=== PATIENT | female | born 1950 | race Caucasian/White ===

== ENCOUNTER → 2017-05-18 | Outpatient (CLI) | payer OTHER ==
[2015-03-24 19:18] VITALS: BP 132/86
--- NOTE | 2017-05-18 15:54 | RAD ---
HISTORY: Right knee pain Study: Four views right knee Comparison: 03/24/2015 Findings: Chronic osteoarthritic changes are noted. No acute fracture or dislocation. The soft tissues are unre markable. No effusion is identified. IMPRESSION: 1. Chronic osteoarthritic changes without acute abnormality. Reported By:
== END ==
LOC: RAD 14:26
PROVIDERS: ATTEND Specialist
DX: M17.11 Unilateral primary osteoarthritis, right knee (principal)
CPT/HCPCS: 73564